=== PATIENT | female | born 1965 | race African-American/Black ===

== ENCOUNTER 2016-10-31 05:41 | Day surgery (SDC) | payer BC | END 2016-10-31 12:16 | disposition home or self-care (01) | LOC: D.OPS 05:41 | DX: M65.312 Trigger thumb, left thumb (principal); G56.02 Carpal tunnel syndrome, left upper limb; M67.432 Ganglion, left wrist ==

== ENCOUNTER → 2017-05-09 10:32 | Outpatient (CLI) | payer BC ==
[2016-10-31 08:50] VITALS: BMI 35.6
[~2017-05-09 10:32] MED LIST: BACTROBAN 22 GM22 GM TOPICAL; BACTROBAN NASAL1 GM NASAL; ELIQUIS2.5 MG PO; GLUCOPHAGE500 MG PO; HYDROCODONE-APA1 TAB PO; PERCOCET 10/3251 TA1 PO; POTASSIUM CHLO10 ME1 PO; PRAVACHOL20 MG PO; ULTRAM50 MG PO; VIMOVO 500-201 EACH PO
== END | disposition home or self-care (01) ==
LOC: D.US 10:32
DX: R10.2 Pelvic and perineal pain (principal); N93.9 Abnormal uterine and vaginal bleeding, unspecified

== ENCOUNTER 2017-10-23 09:54 | Day surgery (SDC) | payer BC ==
[2017-10-22 11:31] LABS: HEMATOCRIT 38.2 % (36.0-48.0); HEMOGLOBIN 12.4 g/dL (12-16); MCH 27.3 pg (26.0-34.0); MCHC 32.5 g/dL (31.0-37.0); MEAN PLATELET VOLUME 11.9 fL (7.4-10.4); RBC 4.55 10x6/uL (4.00-5.40); RDW 13.3 % (11.5-14.5); WBC 5.6 10x3/uL (4.8-10.8)
[2017-10-22 11:49] LABS: CALC OSMOLALITY 282 mosm/kg (275-300); CALCIUM 8.4 mg/dL (8.5-10.1); CARBON DIOXIDE 29.1 mmol/L (21.0-32.0); CHLORIDE - SERUM 104 mmol/L (98-107); CREATININE - SERUM 0.8 mg/dL (0.6-1.3); GLUCOSE 135 mg/dL (74-106); POTASSIUM - SERUM 3.8 mmol/L (3.5-5.1); SODIUM 141 mmol/L (136-145); UREA NITROGEN 12 mg/dL (7-18); eGFR NON AFRICAN AMERICAN 80 mL/min (90-120)
[~2017-10-23] VITALS: Ht 152.4 cm; Wt 83.0 kg
--- NOTE | ~2017-10-23 | OP ---
PATIENT NAME: OLIVA SUNG MEDICAL RECORD: [id number] :63 LOCATION:DRickOPS ADMISSION DATE: SURGEON: CHRISTY PADILLA MD DATE OF OPERATION: 10/23/2017 PREOPERATIVE DIAGNOSIS: De Quervain's stenosing tenosynovitis of the right wrist. POSTOPERATIVE DIAGNOSIS: De Quervain's stenosing tenosynovitis of the right wrist. PROCEDURE: De Quervain's release of the right wrist. SURGEON: Christy Padilla MD ANESTHESIA: General. INTRAOPERATIVE COMPLICATIONS: None. SUMMARY OF PATHOLOGIC FINDINGS: Very tight first dorsal compartment. OPERATIVE SUMMARY IN DETAIL: After obtaining the appropriate preoperative orthopedic surgery consent as well as anesthetic consultation, evaluation and clearance, the patient was brought to the operating room and placed on the operating table in supine position. After adequate general laryngeal mask airway was administered, tourniquet was placed on the proximal aspect of the right upper extremity. Right upper extremity was then prepped and draped in routine sterile fashion. The arm was elevated and exsanguinated and tourniquet inflated to 250 mmHg. A small incision was made over the area of the radial styloid. This was taken down with the first dorsal compartment being sure to avoid the superficial branch of radial nerve. First dorsal compartment was exposed and incised in its entirety with a quick flash of synovial fluid and some synovitis. Synovitis was removed. Wound was copiously irrigated and closed with 4-0 Prolene in interrupted fashion. The area was locally infiltrated with 0.25% Marcaine plain. Sterile dressings were applied. Tourniquet was deflated. The patient was awakened and taken to recovery room in stable condition. All final needle and sponge counts were correct. TRANSINT:[id number] Voice Confirmation ID: [id number] DOCUMENT ID: [id number] CHRISTY PADILLA MD at 1023 CC: [id number] DICTATION DATE: 10/30/17 0759 DIRECTOR OF CAMPUS RECREATION: 10/30/17 0825 [facility] 10/23/[address] [address]
[~2017-10-23 09:54] MED LIST changes: +PRAVACHOL40 MG PO
[2017-10-23 09:55] VITALS: BP 117/54; Ht 152.4 cm; Wt 83.0 kg
[2017-10-23] MEDS ORDERED: HYDROCODONE-APA1 TAB PO (14:24)
== END 2017-10-23 16:00 | disposition home or self-care (01) ==
LOC: D.OPS 09:54
PROVIDERS: Anesthesiology
DX: M65.4 Radial styloid tenosynovitis [de Quervain] (principal); Z01.812 Encounter for preprocedural laboratory examination

== ENCOUNTER 2017-12-11 09:38 | Emergency (ER) | payer BC ==
[~2017-12-11] VITALS: Ht 152.4 cm; Wt 82.7 kg
[2017-12-11 09:43] VITALS: Ht 152.4 cm; Wt 82.7 kg
[2017-12-11] MEDS ORDERED: ULTRAM50 MG PO (11:10)
[2017-12-11 11:49] VITALS: BP 117/51
== END 2017-12-11 11:40 | disposition home or self-care (01) ==
LOC: D.ER 09:38
DX: S60.222A Contusion of left hand, initial encounter (principal); S50.12XA Contusion of left forearm, initial encounter; W18.31XA Fall on same level due to stepping on an object, initial encounter; Y93.89 Activity, other specified; Y92.238 Other place in hospital as the place of occurrence of the external cause; E11.9 Type 2 diabetes mellitus without complications

== ENCOUNTER → 2018-05-27 18:26 | Outpatient (CLI) | payer BC ==
[2017-12-11 09:43] VITALS: BMI 35.6
== END | disposition home or self-care (01) ==
LOC: D.MAMMO 11:15
PROVIDERS: ATTEND Family Medicine
DX: Z12.31 Encounter for screening mammogram for malignant neoplasm of breast (principal)

== ENCOUNTER → 2018-10-06 09:22 | Outpatient (CLI) | payer BC ==
[2017-12-11 09:43] VITALS: BMI 35.6
[~2018-10-06 09:22] MED LIST changes: +GLUCOTROL ER2.5 MG PO; +LEVO-T25 MCG PO
== END | disposition home or self-care (01) ==
LOC: D.NM 09:22
PROVIDERS: ATTEND Orthopaedic Surgery
DX: T84.84XA Pain due to internal orthopedic prosthetic devices, implants and grafts, initial encounter (principal)

== ENCOUNTER → 2018-10-14 17:01 | Outpatient (CLI) | payer BC ==
[2017-12-11 09:43] VITALS: BMI 35.6
== END | disposition home or self-care (01) ==
LOC: D.LABREF 17:01
PROVIDERS: ATTEND Orthopaedic Surgery
DX: M17.12 Unilateral primary osteoarthritis, left knee (principal); Z11.8 Encounter for screening for other infectious and parasitic diseases

== ENCOUNTER 2018-10-15 15:54 | Inpatient (IN) | payer BC ==
[~2018-10-15] VITALS: Ht 152.4 cm; Wt 85.9 kg
[~2018-10-15 15:54] MED LIST changes: -GLUCOTROL ER2.5 MG PO; -LEVO-T25 MCG PO
[2018-10-26] MEDS ORDERED: LEVO-T25 MCG PO (07:22)
[2018-10-26] MEDS ORDERED: GLUCOTROL ER2.5 MG PO (07:23)
[2018-11-18 11:38] LABS: BASOPHILS 0.2 % (0-2); HEMATOCRIT 41.2 % (36.0-48.0); HEMOGLOBIN 13.7 g/dL (12-16); IMMATURE GRANULOCYTES 0.2 % (0-5); LYMPHOCYTES 24.7 % (15-50); MCH 28.5 pg (26.0-34.0); MCHC 33.3 g/dL (31.0-37.0); MCV 85.7 fL (80.0-100.0); MONOCYTES 5.5 % (2-11); NEUTROPHILS 66.4 % (40-80); PLATELET COUNT 205 10x3/uL (130-400); RBC 4.81 10x6/uL (4.00-5.40); RDW 13.4 % (11.5-14.5)
[2018-11-18 11:44] LABS: CALC OSMOLALITY 285 mosm/kg (275-300); CALCIUM 9.5 mg/dL (8.5-10.1); CARBON DIOXIDE 31.9 mmol/L (21.0-32.0); CHLORIDE - SERUM 104 mmol/L (98-107); CREATININE - SERUM 0.7 mg/dL (0.6-1.3); GLUCOSE 135 mg/dL (74-106); SODIUM 143 mmol/L (136-145); UREA NITROGEN 10 mg/dL (7-18); eGFR NON AFRICAN AMERICAN > 90 mL/min (90-120)
[2018-11-18 12:08] LABS: APTT 25.5 SECONDS (22.8-39.4); INR 0.98 (0.85-1.17); PROTIME 12.5 SECONDS (11.6-15.0)
[2018-11-23] VITALS (13 sets, daily range): BP systolic 105–143; BP diastolic 53–93; Ht 152.4 cm; Wt 85.9 kg
--- NOTE | 2018-11-23 09:15 | NUR ---
LEFT LEG CLEANED FROM THIGH TO TOES WITH HIBICLEANSE AND ALCOHOL CIRCUMFERENTIALLY AND DRIED WITH STERILE TOWEL PRIOR TO PREPPING LEFT LEG WITH CHLORAPREP X 2 PLASMA BLADE SET AT 6/8 TRAFFIC AT MINIMUM IN AND OUT OF OR LAMINAR FLOW NOT IN USE
--- NOTE | 2018-11-23 10:23 | NUR ---
OPA INSERTED IN AIRWAY ON ADMIT TO RR
--- NOTE | 2018-11-23 14:17 | OP ---
PATIENT NAME: OLIVA FELICIANO MEDICAL RECORD: [id number] :63 LOCATION:D.MS [id number] ADMISSION DATE:11/23/18 SURGEON: CHRISTY PADILLA MD DATE OF OPERATION: 11/23/2018 PREOPERATIVE DIAGNOSIS: Painful left total knee arthroplasty. POSTOPERATIVE DIAGNOSIS: Painful left total knee arthroplasty. PROCEDURE: Revision left total knee arthroplasty. SURGEON: Christy Padilla MD MERCHANDISE MANAGER: Isael Lisa APN INTRAOPERATIVE COMPLICATIONS: None. SUMMARY OF PATHOLOGIC FINDINGS: The only portion of the total knee that was loose as confirmed by the bone scan was the tibial aspect. It was not grossly loose. INDICATIONS: Ms. Feliciano is a 53-year-old female who had total knee arthroplasty 7 years ago. She has remained very active on the job and began having pain in her knee. Subsequently, bone scan showed that it was beginning to show signs of loosening. Therefore, a revision was scheduled after the risks, hazards, and benefits associated were discussed. IMPLANTS USED: Toña Triathlon TS size 3 with the appropriate adapters, offsets, and stems. See chart for complete list. OPERATIVE SUMMARY IN DETAIL: After obtaining the appropriate preoperative orthopedic surgery consent as well as anesthetic consultation, evaluation and clearance, the patient was brought to the operating room and placed on the operating table in supine position. After adequate general laryngeal mask airway was administered, tourniquet was placed on the proximal aspect of the left lower extremity. Left lower extremity was then prepped and draped in routine sterile fashion. The leg was elevated and exsanguinated, and tourniquet was inflated to 350 mmHg. Midline incision was made over the previous incision, taken down and paramedian arthrotomy performed. Patella was everted to this side and the primary total knee arthroplasty was visualized after the polyethylene was removed. Then osteotomes were utilized to mobilize the distal femur, which was extracted with minimal bone loss. Likewise on the tibia, after full thin osteotome combined with a safety saw cut were made, the tibial baseplate was taken out with very minimal bone loss. Attention was first turned to the distal femur. Serial and sequential reaming and broaching were done for a size 10 x 150 stem. The appropriate distal femoral cuts were made with a 0+ on the medial femoral condyle, 5+ on the distal femoral condyle as well as the posterior lateral aspect of the lateral femoral condyle. After the appropriate chamfer cuts were made and the offset measured, size 2 at 6 was placed for the appropriate offset. Trial was put into place with excellent fit and fill. Attention was then turned to the tibia. Serial and sequential reaming here likewise was done for a size 10. After the reaming was finished, the appropriate cuts were made, cleanup cuts on the proximal tibia. This was then followed by final preparation of the proximal tibia, it was a size 3 with a 6 offset at 10. After punching the proximal tibia, the proximal tibia trial was OPERATIVE REPORT [id number] OLIVA FELICIANO put into place. A size 11 trial was chosen. This was appropriate as the previous polyethylene was a size 9. After this was taken through range of motion and found to be stable in all planes, trials were taken out. The knee was lavaged. Final components were built on the back table and then they were cemented into place. All excess cement was removed. After the polyethylene had been put in, the knee was taken through range of motion and found to be stable in all planes. Wound was then copiously irrigated, filled with a gram of vancomycin and a gram of tobramycin and paramedian arthrotomy was closed with #2 Ethibond by Isael Lisa along with the skin closure with #1 Vicryl, 2-0 Vicryl and skin cliff. Sterile dressings were applied. The tourniquet was deflated. The patient was awakened, taken to the recovery room in stable condition. All final needle and sponge counts were correct. TRANSINT:[id number] Voice Confirmation ID: [id number] DOCUMENT ID: [id number] RANDY LEWIS, CHRISTY ENRIQUEZ at 1417 CC: [id number] DICTATION DATE: 11/23/18 1001 ORDER TO DELIVERY SUPERVISOR: 11/23/18 1047 ADM IN [facility] [address] [place] [address]
[2018-11-23 16:49] LABS: APPEARANCE CLEAR (CLEAR); BILIRUBIN NEGATIVE (NEGATIVE); COLOR YELLOW (YELLOW); GLUCOSE NEGATIVE (NEGATIVE); KETONE NEGATIVE (NEGATIVE); NITRITE NEGATIVE (NEGATIVE); PROTEIN NEGATIVE (NEGATIVE); UROBILINOGEN NORMAL (NORMAL)
--- NOTE | 2018-11-23 17:12 | NUR ---
PATIENT REQUESTED AND RECIEVED WATER. NO FURTHER NEEDS AT THIS TIME. CL IN REACH. WCTM
--- NOTE | 2018-11-23 19:20 | NUR ---
PATIENT IN BED SLEEPING. PATIENT AROUSES EASILY TO VOICE. PATIENT STATES PAIN IS A 7/10. PATIENT HAS UPFITTER PUMP. ENCOURAGE PATIENT TO CALL WITH ANY NEEDS. BED IN LOW POSITION. CALL LIGHT AND BEDSIDE TABLE WITHIN REACH.
[2018-11-24 00:30] VITALS: BP 127/69
[2018-11-24 05:11] VITALS: BP 113/54
[2018-11-24 05:35] LABS: HEMATOCRIT 33.9 % (36.0-48.0); HEMOGLOBIN 10.9 g/dL (12-16); MCH 27.7 pg (26.0-34.0); MCHC 32.2 g/dL (31.0-37.0); MCV 86.3 fL (80.0-100.0); MEAN PLATELET VOLUME 11.6 fL (7.4-10.4); RBC 3.93 10x6/uL (4.00-5.40); RDW 13.6 % (11.5-14.5); WBC 5.5 10x3/uL (4.8-10.8)
[2018-11-24 08:28] VITALS: BP 133/66
--- NOTE | 2018-11-24 08:32 | NUR ---
ASSISTED PATIENT ON/OFF BEDPAN. NO FURTHER NEEDS AT THIS TIME. CL IN REACH. WCTM.
[2018-11-24 13:13] VITALS: BP 133/61
--- NOTE | 2018-11-24 16:24 | MORECARE ---
CASE MANAGEMENT DISCHARGE SUMMARY PATIENT: OLIVA SUNG UNIT: [id number] ADM DATE: 11/23/18 AGE: 53 : 63 SEX: F ROOM/BED: D.220 AUTHOR: LAWDOC PHYSICIAN: REFERRING PHYSICIAN: CHRISTY PADILLA MD DATE OF SERVICE: 11/24/18 Discharge Plan Patient Name: OLIVA SUNG Facility: [facility]:[place] : 1965 Planned Disposition: Home or Self Care Anticipated Discharge Date: Discharge Date: Expected LOS: Initial Reviewer: [email or web address] Initial Review Date: 11/23/2018 Generated: 11/24/18 5:23 pm Comments DCP- Discharge Planning Updated by [email or web address]: Elizabeth Gaviria on 11/24/18 3:[address] Patient Name: OLIVA SUNG Admission Status: Elective Accout number: [id number] Admission Date: 11-23-2018 : 1965 Admission Diagnosis: Attending: CHRISTY PADILLA Current LOS: 1 Anticipated DC Date: Planned Disposition: Home or Self Care Primary Insurance: [employer] [facility] Discharge Planning Comments: CM met with patient to complete initial dc planning assessment. CM educated patient on the CM role and verbal consent given by patient to complete assessment. Patient lives at home with her where she is independent with her care. At discharge patient plans to return home and feels this is a safe discharge. CM discussed availability of home health, rehab services, and medical equipment. She has a BSC, but will need a walker at DC. She would like to do her OP PT at [facility]. I will make that appointment prior to DC. I will also order her a walker when she is DC. Patient denied known discharge needs at this time. CM will continue to follow and will assist as needed with dc plans/needs. Heavy Equipment Plumbing Supervisor: Elizabeth Gaviria DCPIA - Discharge Planning Initial Assessment Updated by [email or web address]: Elizabeth Gaviria on 11/24/18 4:17 pm * Is the patient Alert and Oriented? Yes * PCP ERITREAN * [facility] * Preadmission Environment Home with Family * ADLs Independent * Equipment Bedside Commode * List name and contact numbers for known caregivers / representatives who currently or will assist patient after discharge: DIAMOND () [phone] * Verbal permission to speak to the caregivers and representatives has been obtained from the patient. N/A * Community resources currently utilized None * Additional services required to return to the preadmission environment? Yes * Can the patient safely return to the preadmission environment? Yes * Has this patient been hospitalized within the prior 30 days at any hospital? No Patient Name: OLIVA SUNG Page 69912 at 1624 All edits/amendments must be made on the electronic document DICTATION DATE: 11/24/181622 RECOVERY AGENT: KIRAN 11/24/181622 RPT#: [id number] NC DATE: STATUS: ADM IN [facility] [address] [place] [address] END OF REPORT
[2018-11-24 16:41] VITALS: BP 137/61
[2018-11-24 20:49] VITALS: BP 131/66
[2018-11-25 01:12] VITALS: BP 110/80
[2018-11-25 05:03] VITALS: BP 124/68
--- NOTE | 2018-11-25 05:18 | NUR ---
I have reviewed this patient and I concur with the Shift Assessment completed by the Licensed Practical Nurse today this shift.
[2018-11-25 05:39] LABS: HEMATOCRIT 32.9 % (36.0-48.0); HEMOGLOBIN 10.7 g/dL (12-16); MCH 27.6 pg (26.0-34.0); MCHC 32.5 g/dL (31.0-37.0); MEAN PLATELET VOLUME 11.6 fL (7.4-10.4); RBC 3.87 10x6/uL (4.00-5.40); RDW 13.4 % (11.5-14.5)
[2018-11-25 06:10] LABS: WBC 6.9 10x3/uL (4.8-10.8)
--- NOTE | 2018-11-25 07:56 | NUR ---
PT RESTING IN BED. CHEST RISING AND FALLING. NO S/S OF ACUTE DISTRESS. CL IN PLACE.
[2018-11-25 09:23] VITALS: BP 127/50
[2018-11-25 13:49] VITALS: BP 101/48
[2018-11-25 17:47] VITALS: BP 115/63
--- NOTE | 2018-11-25 18:40 | NUR ---
PT RESTING IN BED. ASSISTED TO BR. DENIES ANY NEEDS. NO S/S OF ACUTE DISTRESS. CL IN PLACE.
[2018-11-25 20:53] VITALS: BP 104/52
[2018-11-26 00:51] VITALS: BP 104/64
--- NOTE | 2018-11-26 04:48 | NUR ---
I have reviewed this patient and I concur with the Shift Assessment completed by the Licensed Practical Nurse today this shift.
[2018-11-26 05:06] VITALS: BP 109/59
[2018-11-26] MEDS ORDERED: PERCOCET 10-321 EAC1 PO (07:27)
[2018-11-26] MEDS ORDERED: ELIQUIS2.5 MG PO (07:27)
[2018-11-26 07:53] VITALS: BP 113/47
--- NOTE | 2018-11-26 07:55 | NUR ---
PT RESTING IN BED. NO S/S OF ACUTE DISTRESS. CL IN PLACE.
--- NOTE | 2018-11-26 08:51 | MORECARE ---
CASE MANAGEMENT DISCHARGE SUMMARY PATIENT: OLIVA SUNG UNIT: [id number] ADM DATE: 11/23/18 AGE: 53 : 63 SEX: F ROOM/BED: D.2208 AUTHOR: LAWDOC PHYSICIAN: REFERRING PHYSICIAN: CHRISTY PADILLA MD DATE OF SERVICE: 11/26/18 Discharge Plan Patient Name: OLIVA SUNG Facility: [facility]:[place] : 1965 Planned Disposition: Home or Self Care Anticipated Discharge Date: Discharge Date: Expected LOS: Initial Reviewer: [email or web address] Initial Review Date: 11/23/2018 Generated: 11/26/18 9:50 am Comments DCP- Discharge Planning Updated by [email or web address]: Elizabeth Gaviria on 11/24/18 3:[address] Patient Name: OLIVA SUNG Admission Status: Elective Accout number: [id number] Admission Date: 11-23-2018 : 1965 Admission Diagnosis: Attending: CHRISTY PADILLA Current LOS: 1 Anticipated DC Date: Planned Disposition: Home or Self Care Primary Insurance: [employer] [facility] Discharge Planning Comments: CM met with patient to complete initial dc planning assessment. CM educated patient on the CM role and verbal consent given by patient to complete assessment. Patient lives at home with her where she is independent with her care. At discharge patient plans to return home and feels this is a safe discharge. CM discussed availability of home health, rehab services, and medical equipment. She has a BSC, but will need a walker at DC. She would like to do her OP PT at [facility]. I will make that appointment prior to DC. I will also order her a walker when she is DC. Patient denied known discharge needs at this time. CM will continue to follow and will assist as needed with dc plans/needs. First Grade Teacher: Elizabeth Gaviria DCPIA - Discharge Planning Initial Assessment Updated by [email or web address]: Elizabeth Gaviria on 11/24/18 4:17 pm * Is the patient Alert and Oriented? Yes * PCP RWANDAN * [facility] * Preadmission Environment Home with Family * ADLs Independent * Equipment Bedside Commode * List name and contact numbers for known caregivers / representatives who currently or will assist patient after discharge: DIAMOND () [phone] * Verbal permission to speak to the caregivers and representatives has been obtained from the patient. N/A * Community resources currently utilized None * Additional services required to return to the preadmission environment? Yes * Can the patient safely return to the preadmission environment? Yes * Has this patient been hospitalized within the prior 30 days at any hospital? No External Providers External Provider: [facility] Next Contact Date: Service Request Date: Service Type: Resolution: Reviewer: Comments: Last DP export: 11/24/18 3:24 p Patient Name: OLIVA SUNG Page 07534 at 0851 All edits/amendments must be made on the electronic document DICTATION DATE: 11/26/18849 SALES ACCOUNT EXECUTIVE: KIRAN 11/26/18849 RPT#: [id number] DC DATE: STATUS: ADM IN [facility] [address] [place] [address] END OF REPORT
--- NOTE | 2018-11-26 08:58 | MORECARE ---
CASE MANAGEMENT DISCHARGE SUMMARY PATIENT: OLIVA SUNG UNIT: [id number] ADM DATE: 11/23/18 AGE: 53 : 63 SEX: F ROOM/BED: D.2208 AUTHOR: LAW,DOC PHYSICIAN: REFERRING PHYSICIAN: CHRISTY PADILLA MD DATE OF SERVICE: 11/26/18 Discharge Plan Patient Name: OLIVA SUNG Facility: [facility]:[place] : 1965 Planned Disposition: Home or Self Care Anticipated Discharge Date: Discharge Date: Expected LOS: Initial Reviewer: [email or web address] Initial Review Date: 11/23/2018 Generated: 11/26/18 9:58 am Comments DCP- Discharge Planning Updated by [email or web address]: Elizabeth Gaviria on 11/26/18 7:[address] PATIENT DISCHARGING HOME TODAY, OP PT APPOINTMENT MADE FOR [facility] FOR Nov @ 2:15 PM. SPOKE WITH BRITNEY WALKER ORDERED FOR PATIENT AND SENT TO [facility] (DID NOT HAVE A PREFERENCE ON WHERE IT WAS SENT) . CM WILL CONTINUE TO FOLLOW AND ASSIST WITH DC PLANNING NEEDED DCP- Discharge Planning Updated by [email or web address]: Elizabeth Gaviria on 11/24/18 3:[address] Patient Name: OLIVA SUNG Admission Status: Elective Accout number: [id number] Admission Date: 11-23-2018 : 1965 Admission Diagnosis: Attending: CHRISTY PADILLA Current LOS: 1 Anticipated DC Date: Planned Disposition: Home or Self Care Primary Insurance: [employer] [facility] Discharge Planning Comments: CM met with patient to complete initial dc planning assessment. CM educated patient on the CM role and verbal consent given by patient to complete assessment. Patient lives at home with her where she is independent with her care. At discharge patient plans to return home and feels this is a safe discharge. CM discussed availability of home health, rehab services, and medical equipment. She has a BSC, but will need a walker at DC. She would like to do her OP PT at [facility]. I will make that appointment prior to DC. I will also order her a walker when she is DC. Patient denied known discharge needs at this time. CM will continue to follow and will assist as needed with dc plans/needs. Superintendent Transmission: Elizabeth Gaviria DCPIA - Discharge Planning Initial Assessment Updated by [email or web address]: Elizabeth Gaviria on 11/24/18 4:17 pm * Is the patient Alert and Oriented? Yes * PCP UKRAINIAN * [facility] * Preadmission Environment Home with Family * ADLs Independent * Equipment Bedside Commode * List name and contact numbers for known caregivers / representatives who currently or will assist patient after discharge: DIAMOND () [phone] * Verbal permission to speak to the caregivers and representatives has been obtained from the patient. N/A * Community resources currently utilized None * Additional services required to return to the preadmission environment? Yes * Can the patient safely return to the preadmission environment? Yes * Has this patient been hospitalized within the prior 30 days at any hospital? No Last DP export: 11/26/18 7:51 Patient Name: OLIVA SUNG Page 71651 at 0858 All edits/amendments must be made on the electronic document DICTATION DATE: 11/26/18857 CUTTER HAND: KIRAN 11/26/18857 RPT#: [id number] DC DATE: STATUS: ADM IN [facility] [address] [place] [address] END OF REPORT
[2018-11-26 12:23] VITALS: BP 113/62
--- NOTE | 2018-11-26 12:30 | NUR ---
PT TOOK ALL BELONGINGS OFF FLOOR ON LAP. VOLUNTEER PUSHED PT OFF THE FLOOR VIA WC. NO S/S OF ACUTE DISTRESS.
--- NOTE | 2018-11-30 11:31 | MORECARE ---
CASE MANAGEMENT DISCHARGE SUMMARY PATIENT: OLIVA SUNG UNIT: [id number] ADM DATE: 11/23/18 AGE: 53 : 63 SEX: F ROOM/BED: D.2202 AUTHOR: LAW,DOC PHYSICIAN: REFERRING PHYSICIAN: CHRISTY PADILLA MD DATE OF SERVICE: 11/30/18 Discharge Plan Patient Name: OLIVA SUNG Facility: [facility]:[place] : 1965 Planned Disposition: Home or Self Care Anticipated Discharge Date: Discharge Date: 11/26/2018 Expected LOS: 0 Initial Reviewer: [email or web address] Initial Review Date: 11/23/2018 Generated: 11/30/18 12:31 pm Comments DCP- Discharge Planning Updated by [email or web address]: Elizabeth Gaviria on 11/26/18 7:[address] PATIENT DISCHARGING HOME TODAY, OP PT APPOINTMENT MADE FOR [facility] FOR Nov @ 2:15 PM. SPOKE WITH BRITNEY WALKER ORDERED FOR PATIENT AND SENT TO [facility] (DID NOT HAVE A PREFERENCE ON WHERE IT WAS SENT) . CM WILL CONTINUE TO FOLLOW AND ASSIST WITH DC PLANNING NEEDED DCP- Discharge Planning Updated by [email or web address]: Elizabeth Gaviria on 11/24/18 3:[address] Patient Name: OLIVA SUNG Admission Status: Elective Accout number: [id number] Admission Date: 11-23-2018 : 1965 Admission Diagnosis: Attending: CHRISTY PADILLA Current LOS: 1 Anticipated DC Date: Planned Disposition: Home or Self Care Primary Insurance: [employer] [facility] Discharge Planning Comments: CM met with patient to complete initial dc planning assessment. CM educated patient on the CM role and verbal consent given by patient to complete assessment. Patient lives at home with her where she is independent with her care. At discharge patient plans to return home and feels this is a safe discharge. CM discussed availability of home health, rehab services, and medical equipment. She has a BSC, but will need a walker at DC. She would like to do her OP PT at [facility]. I will make that appointment prior to DC. I will also order her a walker when she is DC. Patient denied known discharge needs at this time. CM will continue to follow and will assist as needed with dc plans/needs. Director Of Content And Programming: Elizabeth Gaviria DCPIA - Discharge Planning Initial Assessment Updated by [email or web address]: Elizabeth Gaviria on 11/24/18 4:17 pm * Is the patient Alert and Oriented? Yes * PCP OCCITAN * [facility] * Preadmission Environment Home with Family * ADLs Independent * Equipment Bedside Commode * List name and contact numbers for known caregivers / representatives who currently or will assist patient after discharge: DIAMOND () [phone] * Verbal permission to speak to the caregivers and representatives has been obtained from the patient. N/A * Community resources currently utilized None * Additional services required to return to the preadmission environment? Yes * Can the patient safely return to the preadmission environment? Yes * Has this patient been hospitalized within the prior 30 days at any hospital? No Last DP export: 11/26/18 7:58 Patient Name: OLIVA SUNG Page 73911 at 1131 All edits/amendments must be made on the electronic document DICTATION DATE: 11/30/18 1131 REGIONAL EDUCATION MANAGER: KIRAN 11/30/18 1131 RPT#: [id number] DC DATE:11/26/18 STATUS: DIS IN [facility] [address] [place] [address] END OF REPORT
== END 2018-11-26 13:05 | disposition home or self-care (01) | DRG 468 ==
LOC: D.M2 11-18 10:00 → D.SDCHOLD 11-23 05:00 → D.MS 11-23 05:00 → D.M2 11-23 07:30 → D.MS 11-23 10:37
PROVIDERS: ADMIT Orthopaedic Surgery; ATTEND Orthopaedic Surgery
PROC: 0SRD0J9 Replacement of Left Knee Joint with Synthetic Substitute, Cemented, Open Approach (ICD-10-PCS; 2018-11-23)
PROC: 0SPD0JZ Removal of Synthetic Substitute from Left Knee Joint, Open Approach (ICD-10-PCS; principal; 2018-11-23 07:30)
DX: T84.84XA Pain due to internal orthopedic prosthetic devices, implants and grafts, initial encounter (principal); T84.033A Mechanical loosening of internal left knee prosthetic joint, initial encounter; E11.9 Type 2 diabetes mellitus without complications; E03.9 Hypothyroidism, unspecified

== ENCOUNTER 2018-10-26 06:07 | Day surgery (SDC) | payer BC ==
[~2018-10-26] VITALS: Ht 152.4 cm; Wt 90.9 kg
[2018-10-26 06:47] LABS: HEMATOCRIT 38.8 % (36.0-48.0); HEMOGLOBIN 12.9 g/dL (12-16); MCH 27.6 pg (26.0-34.0); MCHC 33.2 g/dL (31.0-37.0); MCV 83.1 fL (80.0-100.0); MEAN PLATELET VOLUME 11.6 fL (7.4-10.4); RBC 4.67 10x6/uL (4.00-5.40); RDW 13.7 % (11.5-14.5); WBC 5.4 10x3/uL (4.8-10.8)
[2018-10-26 07:22] LABS: CALC OSMOLALITY 286 mosm/kg (275-300); CALCIUM 8.6 mg/dL (8.5-10.1); CHLORIDE - SERUM 105 mmol/L (98-107); CREATININE - SERUM 0.8 mg/dL (0.6-1.3); GLUCOSE 142 mg/dL (74-106); POTASSIUM - SERUM 3.4 mmol/L (3.5-5.1); SODIUM 143 mmol/L (136-145); UREA NITROGEN 12 mg/dL (7-18); eGFR NON AFRICAN AMERICAN 79 mL/min (90-120)
[2018-10-26] MEDS ORDERED: LEVO-T25 MCG PO (07:22)
[2018-10-26] MEDS ORDERED: GLUCOTROL ER2.5 MG PO (07:23)
[2018-10-26 07:25] VITALS: Ht 152.4 cm; Wt 90.9 kg
--- NOTE | 2018-10-29 07:40 | OP ---
PATIENT NAME: OLIVA SUNG MEDICAL RECORD: [id number] :63 LOCATION:D.OPS ADMISSION DATE: SURGEON: GIDEON WHITAKER DO DATE OF OPERATION: 10/26/2018 PROCEDURE: Colonoscopy with biopsy. INDICATIONS FOR PROCEDURE: Screening for colorectal cancer. SCOPE: Olympus video pediatric colonoscope. MEDICATIONS: Propofol 400 mg IV per anesthesia. WITHDRAWAL TIME: 19 minutes. ESTIMATED BLOOD LOSS: Minimal. COMPLICATIONS: None. FINDINGS: Informed consent was given. The patient was made comfortable with the above medication. After reaching an adequate level of sedation by slow IV push, the patient was placed on her left side. A digital rectal examination was performed and was normal. The endoscope was advanced under direct visualization through the rectum to the cecum, confirmed by the presence of the appendiceal orifice and ileocecal valve. The endoscope was slowly withdrawn and the mucosa was carefully examined. The prep quality was good. There were no polyps or diverticula visualized on today's examination. Retroflexion was performed in the rectum. There appeared to be papillomatous changes right at the anorectal verge. Multiple cold forceps biopsies were taken with removal of the entire visualized papillomatous tissue. These will be submitted for histopathology. The endoscope was withdrawn from the patient. The patient tolerated the procedure well and there were no complications. IMPRESSION: 1. Papillomatous changes within the rectum. 2. Otherwise, normal colonoscopy. PLAN AND RECOMMENDATIONS: 1. Discharge home when recovery parameters are met. 2. Continue current diet. 3. Continue current medications. 4. Recall colonoscopy will be dependent on results of biopsies. If this is confirmed to be papillomatous tissue, I would recommend a repeat flex sig in 6 months to reevaluate the site. If biopsies are not consistent with papillomatous tissue, recall will be recommended at 10 years. TRANSINT:[id number] Voice Confirmation ID: [id number] DOCUMENT ID: [id number] OPERATIVE REPORT [id number] OLIVA SUNG GIDEON WHITAKER DO at 0740 CC: [id number] DICTATION DATE: 10/26/1840 PAPER PRODUCTS MACHINE OPERATOR: 10/26/18 0847 [facility] 10/26/18 [place] [address]
== END 2018-10-26 09:46 | disposition home or self-care (01) ==
LOC: D.OPS 06:07
PROVIDERS: Anesthesiology; ATTEND Internal Medicine Gastroenterology
DX: Z12.11 Encounter for screening for malignant neoplasm of colon (principal); D12.8 Benign neoplasm of rectum; Z01.812 Encounter for preprocedural laboratory examination

== ENCOUNTER 2019-04-19 06:21 | Day surgery (SDC) | payer BC ==
[~2019-04-19] VITALS: Ht 152.4 cm; Wt 81.8 kg
[~2019-04-19 06:21] MED LIST changes: +GLUCOTROL ER2.5 MG PO; +LEVO-T25 MCG PO; +PERCOCET 10-321 EAC1 PO
[2019-04-19 06:56] LABS: HEMATOCRIT 39.8 % (36.0-48.0); HEMOGLOBIN 12.9 g/dL (12-16); MCH 26.5 pg (26.0-34.0); MCHC 32.4 g/dL (31.0-37.0); MCV 81.9 fL (80.0-100.0); MEAN PLATELET VOLUME 10.5 fL (7.4-10.4); RBC 4.86 10x6/uL (4.00-5.40); RDW 15.3 % (11.5-14.5); WBC 4.6 10x3/uL (4.8-10.8)
[2019-04-19 07:06] LABS: CALC OSMOLALITY 280 mosm/kg (275-300); CALCIUM 9.3 mg/dL (8.5-10.1); CARBON DIOXIDE 28.1 mmol/L (21.0-32.0); CHLORIDE - SERUM 107 mmol/L (98-107); CREATININE - SERUM 0.7 mg/dL (0.6-1.3); GLUCOSE 133 mg/dL (74-106); POTASSIUM - SERUM 3.7 mmol/L (3.5-5.1); SODIUM 141 mmol/L (136-145); UREA NITROGEN 7 mg/dL (7-18); eGFR NON AFRICAN AMERICAN > 90 mL/min (90-120)
[2019-04-19 07:28] VITALS: BP 121/57; Ht 152.4 cm; Wt 81.8 kg
--- NOTE | 2019-04-19 13:03 | NUR ---
1005 IV DC'D. CATHETER TIP INTACT. NO BLEEDING AT SITE. BANDAID APPLIED.
--- NOTE | 2019-04-20 16:37 | OP ---
PATIENT NAME: OLIVA SUNG MEDICAL RECORD: [id number] :63 LOCATION:[facility] ADMISSION DATE: SURGEON: GIDEON WHITAKER DO DATE OF OPERATION: 04/19/2019 PROCEDURE: Flexible sigmoidoscopy with biopsies. INDICATIONS FOR PROCEDURE: This is a 6-month followup from a colonoscopy where an anorectal papilloma was previously biopsied. SCOPE: Olympus video pediatric colonoscope. MEDICATIONS: Propofol 200 mg IV per anesthesia. COMPLICATIONS: None. FINDINGS: Informed consent was given. The patient was made comfortable with the above medication. After reaching an adequate level of sedation by slow IV push, the patient was placed on her left side. A digital rectal examination was performed and was normal other than a slight rough spot of tissue upon digital rectal examination consistent with papilloma. The endoscope was advanced under direct visualization in through the rectum to the distal sigmoid colon. The mucosa appeared normal. Retroflexion was performed for visualization of the site of the previously identified papilloma. A scar was present where previous biopsies were taken. Just distal to the scar, there appeared to be an approximately 3-4 mm site of further papillomatous tissue, which was removed using cold forceps. The endoscope was then withdrawn from the patient. The patient tolerated the procedure well, and there were no immediate complications. IMPRESSION: 1. Anorectal papilloma. 2. Otherwise normal endoscopy to sigmoid colon. PLAN AND RECOMMENDATIONS: 1. Discharge home when recovery parameters are met. 2. Follow up biopsy specimen results. 3. High fiber diet. 4. Continue current medications. 5. Recall colonoscopy in approximately 1 year for reevaluation of the papillomatous tissue. TRANSINT:[id number] Voice Confirmation ID: [id number] DOCUMENT ID: [id number] GIDEON WHITAKER DO at 1637 CC: [id number] DICTATION DATE: 04/19/19 0925 [facility] [employer]ER: 04/19/[address] [facility] 04/19/[address] [id number]
== END 2019-04-19 10:26 | disposition home or self-care (01) ==
LOC: D.OPS 06:21
PROVIDERS: Anesthesiology; ATTEND Internal Medicine Gastroenterology
DX: Z12.11 Encounter for screening for malignant neoplasm of colon (principal); D12.9 Benign neoplasm of anus and anal canal

== ENCOUNTER → 2019-09-02 10:55 | Outpatient (CLI) | payer BC ==
[2019-04-19 07:28] VITALS: BMI 35.2
== END | disposition home or self-care (01) ==
LOC: D.MRI 10:55
PROVIDERS: ATTEND Orthopaedic Surgery
DX: M54.16 Radiculopathy, lumbar region (principal)

== ENCOUNTER 2019-09-10 15:00 | Outpatient (CLI) | payer BC ==
[2019-04-19 07:28] VITALS: BMI 35.2
== END 2019-09-10 16:00 | disposition home or self-care (01) ==
LOC: D.MAMMO 15:00
PROVIDERS: ATTEND Family Medicine
DX: Z12.31 Encounter for screening mammogram for malignant neoplasm of breast (principal)